=== PATIENT | male | born 1965 | race Caucasian/White ===

== ENCOUNTER → 2016-09-29 | Outpatient (CLI) | payer OTHER ==
[2016-09-29 08:12] LABS: EKG EKG PERFORMED
[2016-09-29 08:36] LABS: Basophils # (A) 0.1 k/uL (0-0.2); Basophils % (A) 1 %; CH 31.3; CHCM 34.6; Eosinophils # (A) 0.2 k/uL (0-0.7); Eosinophils % (A) 3 %; HDW 2.95; HGB 15.3 gm/dL (13.0-17.5); Luc # (Auto) 0.18; Luc % (Auto) 3; Lymphocytes # (A) 2.2 k/uL (1.0-4.8); Lymphocytes % (A) 33 %; MCH 30.1 pg (25.0-35.0); MCHC 33.2 g/dL (31.0-37.0); MCV 90.8 fL (80.0-100.0); Mean Platelet Volume 6.9; Monocytes # (A) 0.5 k/uL (0-1.0); Monocytes % (A) 8 %; Neutrophils # (A) 3.5 k/uL (1.3-7.7); Neutrophils % (A) 52 %; RBC 5.07 m/uL (4.30-5.90); RDW 13.5 % (11.5-15.5); WBC 6.7 k/uL (3.8-10.6); WBC (Perox) 6.41
[2016-09-29 08:54] LABS: Anion Gap 15 mmol/L; Carbon Dioxide 28 mmol/L (22-30); Chloride 100 mmol/L (98-107); Potassium 4.5 mmol/L (3.5-5.1); Sodium 143 mmol/L (137-145)
== END | disposition home or self-care (01) ==
LOC: LABPAT 08:00
PROVIDERS: ATTEND Orthopaedic Surgery
DX: I10 Essential (primary) hypertension (principal); M75.41 Impingement syndrome of right shoulder; Z01.812 Encounter for preprocedural laboratory examination; Z01.818 Encounter for other preprocedural examination
CPT/HCPCS: 80051; 85025; 93005

== ENCOUNTER 2016-10-05 07:13 | Day surgery (SDC) | payer OTHER ==
[2016-09-30 11:19] VITALS: BMI 39.9
--- NOTE | 2016-10-04 13:25 | HP ---
DATE OF ADMISSION: Surgery is 10/05/2016. Samy Bryan is a 51-year-old patient seen with progressive right shoulder pain. After having options regarding treatment discussed elected to proceed with right shoulder arthroscopy. Consent was obtained. His past medical history is hypertension. PAST SURGICAL HISTORY: Noncontributory. DAILY MEDICATIONS: 1. Cardizem. 2. Diovan. 3. Xanax. Allergies are none reported. SOCIAL HISTORY: Patient denies tobacco use. PHYSICAL EVALUATION OF RIGHT SHOULDER: Flexion is 160 degrees, abduction is 140 degrees, external rotation is 35 degrees with some pain and weakness. There is tenderness along the anterolateral acromion and rotator cuff insertion site. Impingement positive at 90 degrees. Distal neurovascular exam is intact. Radiographs of the right shoulder revealed a type II anterior acromion, evidence for acromioclavicular joint osteoarthritis. MRI right shoulder revealed a partial rotator cuff tear, acromioclavicular joint osteoarthritis and labral tear. IMPRESSION: Right shoulder impingement with rotator cuff tear, labral tear and acromioclavicular joint osteoarthritis. PLAN: Right shoulder arthroscopy with subacromial decompression, possible arthroscopic rotator cuff repair, possible biceps tenotomy, possible Anum procedure and debridement.
[~2016-10-05 07:13] MED LIST: DEXAMETHASONE SOD PHOSPHATE 10 MG/ML 1 ML VIAL IV ONE; LACTATED RINGERS 1,000 ML IV SCH; LIDOCAINE 1% 20 ML VIAL (10MG/ML) FOR IV START INTRADERMA PRN; ONDANSETRON 4 MG/2 ML VIAL IVP ONE; SCOPOLAMINE 1.5MG/72HR PATCH TRANSDERM ONE; ceFAZolin 2 GM in SODIUM CHLORIDE 0.9% 100 ML IVPB ONE
[2016-10-05] MEDS ORDERED: LIDOCAINE 1% 20 ML VIAL (10MG/ML) FOR IV START INTRADERMA ONE (08:15)
[2016-10-05] MEDS ORDERED: fentaNYL (PF) 50 MCG/ML 2 ML AMP IV ONE (08:23)
[2016-10-05] MEDS ORDERED: MIDAZOLAM 2 MG/2 ML VIAL IV ONE (08:23)
[2016-10-05 08:51] VITALS: RESP 16
[2016-10-05] MEDS ORDERED: SUCCINYLCHOLINE CHLORIDE VIAL 200 MG/10 ML VIAL IV ONE (09:35)
[2016-10-05] MEDS ORDERED: LIDOCAINE 2%-EPI 1:100,000 20 ML VIAL ONE (09:35)
[2016-10-05] MEDS ORDERED: PHENYLEPHRINE-0.9% NACL SYG 1 MG/10 ML SYRINGE ONE (09:35)
[2016-10-05] MEDS ORDERED: ceFAZolin 1,000 MG VIAL ONE ×2 (09:35→10:12)
[2016-10-05] MEDS ORDERED: ePHEDrine 50 MG/ML 1 ML AMP ONE ×2 (09:35→10:12)
[2016-10-05] MEDS ORDERED: ROPIVACAINE 5 MG/ML 30 ML VIAL ONE (09:35)
[2016-10-05] MEDS ORDERED: PROPOFOL 10 MG/ML 20 ML VIAL IV ONE ×2 (09:35→10:12)
[2016-10-05] MEDS ORDERED: MIDAZOLAM 2 MG/2 ML VIAL ONE ×2 (09:35→10:12)
[2016-10-05] MEDS ORDERED: SODIUM CHLORIDE 0.9% 100 ML BAG ONE (09:35)
[2016-10-05] MEDS ORDERED: fentaNYL (PF) 50 MCG/ML 2 ML AMP ONE ×2 (09:35→10:12)
[2016-10-05] MEDS ORDERED: LIDOCAINE 1% INJ 10MG/ML (20 ML MDV) ONE ×2 (09:35→10:12)
[2016-10-05] MEDS ORDERED: LACTATED RINGERS 1,000 ML BAG IV ONE ×2 (09:35→10:12)
[2016-10-05] MEDS ORDERED: SUCCINYLCHOLINE CHLORIDE 100 MG/5 ML SYR IV ONE (10:12)
[2016-10-05] MEDS ORDERED: SODIUM CHLORIDE 0.9% 50 ML BAG ONE (10:12)
[2016-10-05] MEDS ORDERED: LACTATED RINGERS 1,000 ML IV ONE (10:52)
--- NOTE | 2016-10-05 11:20 | P.OP ---
Date of Procedure: 10/05/16 Preoperative Diagnosis: Right shoulder impingement Postoperative Diagnosis: 1. Right shoulder rotator cuff tear 2. Right shoulder impingement 3. Right shoulder acromioclavicular joint osteoarthritis 4. Right shoulder partial biceps tendon tear 5. Right shoulder superficial superior/anterior labral tear Procedure(s) Performed: 1. Right shoulder arthroscopic rotator cuff repair 2. Right shoulder arthroscopic subacromial decompression 3. Right shoulder arthroscopic Anum procedure 4. Right shoulder arthroscopic biceps tenotomy 5. Right shoulder arthroscopic debridement labral tear Implants: 1-valeris peek anchor Anesthesia: GETA, regional (Interscalene block) Surgeon: Demond Grimes Dog Sitter #1: Leroy Nicholas Estimated Blood Loss (ml): 20 Pathology: none sent Condition: stable Disposition: PACU Indications for Procedure: 50-year-old patient seen with progressive right shoulder pain. After having treatment options discussed, he elected to proceed with right shoulder arthroscopy. Operative Findings: See description of procedure Description of Procedure: Patient underwent a shoulder block by department of anesthesia. The patient was then taken to the operative suite. The patient underwent a general anesthetic by the department of anesthesia. The patient was placed into a lateral position and secured. There was appropriate padding of the bony prominence. Right shoulder was then prepped and draped in normal sterile orthopedic fashion. We placed the extremity in 10 pounds of longitudinal traction. A posterior incision was now made for a posterior working portal site. The trocar and cannula were inserted into the glenohumeral joint. Arthroscopy was initiated. Spinal needle was now inserted anteriorly, to ascertain the anterior working portal site. An incision was now made in that area, a trocar was inserted followed by a probe. There was superficial tearing of the superior and anterior labrum present. There were grade 1 chondromalacia changes of the glenoid. There was partial tearing long head biceps tendon present. There were no loose bodies. An arthroscopic biceps tenotomy was performed. I debrided the labral tear down to stable tissue. The probe was reintroduced and noted good stability about the residual labrum. At this point instruments removed from the glenohumeral joint. Utilizing the posterior working portal site, the trocar and cannula were inserted into the subacromial space. Arthroscopy initiated. I made an incision 2 fingerbreadths lateral to the acromion. I introduced my trocar followed by my [employer]throCare ablator. I now began ablating thick subacromial bursal tissue, which exposed the undersurface of the anterior acromion. This was diminished subacromial space. There was a very prominent anterior acromion. A motorized bur was introduced and a subacromial decompression was performed. I also excised some osteophytes off the inferior aspect of the distal clavicle. The AC joint was visualized and noted to be fairly arthritic. Our motorized bur was introduced in the anterior portal site and a Anum procedure was performed without difficulty, decompressing the AC joint nicely. I turned my attention to the rotator cuff. There was an area of partial tearing along the distal supraspinatus tendon area. After additional probing we noted some calcifications within the distal supraspinatus posteriorly. I utilized a motorized shaver to debride this out. We meticulously debrided out all areas of calcification and debrided the rotator cuff tendon tear down to stable tissue. The tear was approximately 1.5 cm and easily mobilized over the footprint. I abraded the footprint with a motorized bur. I inserted 2 everted mattress sutures through good bites of rotator cuff tendon. I repaired the tendon with one single 4.5 anchor compressing the tendon on the footprint nicely. Residual suture limbs were clipped. The repair was stable. I injected the footprint and intra-articular area with 1 mL of Allogen. Instruments now removed from the portal sites. All portal sites were approximated with nylon suture. Sterile dressings were applied followed by a shoulder immobilizer. Eliel CHURCH assisted with the procedure. The patient was awakened, transferred to a bed, and taken to recovery in stable condition.
[2016-10-05 11:22] VITALS: TEMP 97.3
[2016-10-05] MEDS: HYDROmorphone 1 MG/ML 1 ML SYRINGE IVP PRN ×2 (11:24→11:29)
[2016-10-05] MEDS ORDERED: KETOROLAC 30 MG/ML 1 ML VIAL IVP ONE (12:11)
[2016-10-05] MEDS ORDERED: HYDROcodone/APAP 7.5-325MG 1 EACH TAB PO ONE (12:41)
[2016-10-05 13:30] VITALS: BP 122/63; PULSE 67
== END 2016-10-05 13:52 | disposition home or self-care (01) ==
LOC: OR 07:13
PROVIDERS: ATTEND Orthopaedic Surgery
DX: M75.111 Incomplete rotator cuff tear or rupture of right shoulder, not specified as traumatic (principal); M75.41 Impingement syndrome of right shoulder; M19.011 Primary osteoarthritis, right shoulder; S46.211A Strain of muscle, fascia and tendon of other parts of biceps, right arm, initial encounter; S43.401A Unspecified sprain of right shoulder joint, initial encounter; X58.XXXA Exposure to other specified factors, initial encounter; M94.211 Chondromalacia, right shoulder; I10 Essential (primary) hypertension; Z79.899 Other long term (current) drug therapy
CPT/HCPCS: 64415; 29824; 29827; 29826; C1713; C1765; J2250; J0330; J1100; J2405; J0690; J2001; J3010; J1885; J1170; J2795; J2370; J2704

== ENCOUNTER → 2016-12-08 | Outpatient (CLI) | payer OTHER ==
[2016-12-08 19:59] LABS: Basophils # (A) 0.1 k/uL (0-0.2); Basophils % (A) 1 %; CH 31.5; CHCM 34.9; Eosinophils # (A) 0.2 k/uL (0-0.7); Eosinophils % (A) 3 %; HCT 46.4 % (39.0-53.0); HGB 15.5 gm/dL (13.0-17.5); Luc # (Auto) 0.16; Luc % (Auto) 3; Lymphocytes # (A) 2.3 k/uL (1.0-4.8); Lymphocytes % (A) 39 %; MCH 30.4 pg (25.0-35.0); MCHC 33.4 g/dL (31.0-37.0); MCV 90.8 fL (80.0-100.0); Mean Platelet Volume 7.9; Monocytes # (A) 0.4 k/uL (0-1.0); Monocytes % (A) 7 %; Neutrophils # (A) 2.8 k/uL (1.3-7.7); Neutrophils % (A) 47 %; RBC 5.11 m/uL (4.30-5.90); RDW 13.7 % (11.5-15.5); WBC (Perox) 5.91
[2016-12-08 20:14] LABS: ALT 34 U/L (21-72); AST 24 U/L (17-59); Alkaline Phosphatase 55 U/L (38-126); Anion Gap 14 mmol/L; Blood Urea Nitrogen 17 mg/dL (9-20); Calcium 9.5 mg/dL (8.4-10.2); Carbon Dioxide 26 mmol/L (22-30); Chloride 103 mmol/L (98-107); Cholesterol 191 mg/dL (<200); Glucose 101 mg/dL (74-99); HDL Cholesterol 69 mg/dL (40-60); Non-African American GFR(MDRD) >60 (>60 ml/min/1.73 sqM); Potassium 3.6 mmol/L (3.5-5.1); Sodium 143 mmol/L (137-145); Total Bilirubin 0.6 mg/dL (0.2-1.3); Total Protein 7.7 g/dL (6.3-8.2); Triglycerides 82 mg/dL (<150)
== END | disposition home or self-care (01) ==
LOC: MMGSC 10:35
PROVIDERS: ATTEND Family Medicine
DX: I10 Essential (primary) hypertension (principal); Z12.5 Encounter for screening for malignant neoplasm of prostate
CPT/HCPCS: 84439; 80061; 80053; 84443; 85025; 36415; G0103